=== PATIENT | male | born 1980 | race Caucasian/White ===

== ENCOUNTER 2018-02-15 06:33 | Inpatient (IN) | payer MEDICAID ==
[~2018-02-15] VITALS: Ht 172.7 cm; Wt 100.9 kg
[2018-02-15 06:34] VITALS: Ht 172.7 cm; Wt 100.9 kg
[2018-02-15 07:02] LABS: BASOPHIL % 0.4 % (0-2); PLATELET COUNT 302 x10^3mcL (130-400); RED CELL DISTRIBUTION WIDTH 13.4 % (11.5-14.5)
[2018-02-15 07:12] LABS: CALCIUM 8.7 mg/dL (8.5-10.1); CARBON DIOXIDE 25.6 mmol/L (21-32); CHLORIDE SERUM 106 mmol/L (98-107); CREATININE SERUM 1.1 mg/dL (0.7-1.3); GFR1 > 60 mL/min; GLUCOSE SERUM 117 mg/dL (74-106); POTASSIUM SERUM 3.6 mmol/L (3.5-5.1); SODIUM SERUM 139 mmol/L (136-145)
[2018-02-15 07:17] LABS: ALBUMIN 3.5 g/dL (3.4-5.0); ALKALINE PHOSPHATASE 96 U/L (46-116); ALT/SGPT 73 U/L (16-63); AST/SGOT 29 U/L (15-37); BILIRUBIN TOTAL 0.2 mg/dL (0.20-1.00); TOTAL PROTEIN, SERUM 7.1 g/dL (6.4-8.2)
[2018-02-15 11:40] VITALS: BP 128/82
[2018-02-15 11:47] LABS: PHOSPHOROUS 3.3 mg/dL (2.5-4.9)
[2018-02-15 11:57] LABS: FREE T4 0.9 ng/dL (0.76-1.46); T3 TOTAL 1.16 ng/mL; T4(THYROXINE) 8.2 ug/dL (4.7-13.3)
[2018-02-15 14:23] LABS: microscopic required? NO
[2018-02-15 14:35] LABS: UA SPECIFIC GRAVITY 1.015 (1.005-1.035); urine erythrocyte NEGATIVE (NEGATIVE)
[2018-02-15 14:48] LABS: AMPHETAMINE QUAL UR NONE DETECTED (See below)
[2018-02-15 17:16] VITALS: BP 133/87
[2018-02-15 21:06] VITALS: BP 128/79
[2018-02-16 05:49] VITALS: BP 140/86
[2018-02-16 06:17] LABS: BASOPHIL % 0.3 % (0-2); PLATELET COUNT 311 x10^3mcL (130-400); RED CELL DISTRIBUTION WIDTH 13.1 % (11.5-14.5)
[2018-02-16 06:27] LABS: CALCIUM 8.7 mg/dL (8.5-10.1); CARBON DIOXIDE 26.1 mmol/L (21-32); CHLORIDE SERUM 104 mmol/L (98-107); CREATININE SERUM 0.9 mg/dL (0.7-1.3); GFR1 > 60 mL/min; GLUCOSE SERUM 111 mg/dL (74-106); POTASSIUM SERUM 3.8 mmol/L (3.5-5.1); SODIUM SERUM 139 mmol/L (136-145)
[2018-02-16 08:38] VITALS: BP 129/90
[2018-02-16 14:30] VITALS: BP 113/71
[2018-02-16 16:22] VITALS: BP 115/72
[2018-02-16 21:23] VITALS: BP 128/69
[2018-02-17 05:44] VITALS: BP 108/60
[2018-02-17 06:06] LABS: PLATELET COUNT 303 x10^3mcL (130-400); RED CELL DISTRIBUTION WIDTH 13.3 % (11.5-14.5)
[2018-02-17 06:32] LABS: CALCIUM 8.8 mg/dL (8.5-10.1); CHLORIDE SERUM 106 mmol/L (98-107); GFR1 > 60 mL/min; GLUCOSE SERUM 122 mg/dL (74-106); HDL CHOLESTEROL 52 mg/dL (40-60); POTASSIUM SERUM 4.4 mmol/L (3.5-5.1); SODIUM SERUM 141 mmol/L (136-145); TRIGLYCERIDES 98 mg/dL (<150)
[2018-02-17 06:33] LABS: CHOLESTEROL 205 mg/dL (<200); CHOLESTEROL/HDL RATIO 3.9
[2018-02-17 06:53] LABS: BASOPHIL % 0 % (0-2)
[2018-02-17 09:13] VITALS: BP 116/62
[2018-02-17] MEDS ORDERED: ACETAMINOPHEN-H1 TA1 PO (10:24)
[2018-02-17 12:00] VITALS: BP 116/62
== END 2018-02-17 12:46 | disposition home or self-care (01) | DRG 263 ==
LOC: ED 06:33 → EDBEDREQ 09:59 → MU 10:00 → EDBEDREQSVC 10:13 → EDBEDREQ 10:13 → MU 11:25
PROVIDERS: Emergency Medicine; Family Medicine; Internal Medicine; Surgery
PROC: 0FT44ZZ Resection of Gallbladder, Percutaneous Endoscopic Approach (ICD-10-PCS; principal; 2018-02-16 10:00)
DX: K80.00 Calculus of gallbladder with acute cholecystitis without obstruction (principal); K82.1 Hydrops of gallbladder; F10.10 Alcohol abuse, uncomplicated; E78.5 Hyperlipidemia, unspecified; R74.0 Nonspecific elevation of levels of transaminase and lactic acid dehydrogenase [LDH]; Y90.9 Presence of alcohol in blood, level not specified; E66.9 Obesity, unspecified; Z71.3 Dietary counseling and surveillance; Z68.34 Body mass index [BMI] 34.0-34.9, adult
CPT/HCPCS: 83880; 84439; J0330; J0690; J1885; J2175; J2250; J2270; J2405; J2704; J3010; J3490; J7030; J7120; Q0092

== ENCOUNTER 2018-03-04 09:05 | Emergency (ER) | payer MEDICAID ==
[~2018-03-04 09:05] MED LIST: ACETAMINOPHEN-H1 TA1 PO
[2018-03-04 09:20] VITALS: Ht 175.3 cm
[2018-03-04 11:23] VITALS: BP 126/70
== END 2018-03-04 11:23 | disposition home or self-care (01) ==
LOC: ED 09:05
DX: R10.13 Epigastric pain (principal); R42 Dizziness and giddiness

== ENCOUNTER 2018-04-07 23:27 | Emergency (ER) | payer SELFPAY ==
[~2018-04-07] VITALS: Ht 175.3 cm; Wt 97.5 kg
[2018-04-07 23:33] VITALS: Ht 175.3 cm; Wt 97.5 kg
[2018-04-07 23:49] VITALS: BP 121/76
== END 2018-04-07 23:50 | disposition home or self-care (01) ==
LOC: ED 23:27
DX: K08.89 Other specified disorders of teeth and supporting structures (principal)